=== PATIENT | male | born 1940 | race Caucasian/White ===

== ENCOUNTER 2018-02-26 12:40 | Outpatient (RCR) | payer MEDICARE, BC ==
[2018-02-05 13:47] VITALS: BP 91/57
[2018-02-05 13:49] VITALS: BP 112/53
[2018-02-12 12:39] VITALS: BP 126/78
[2018-02-12 13:26] VITALS: BP 89/51
[2018-02-19 12:44] VITALS: BP 124/74
[2018-02-19 13:15] VITALS: BP 126/76
[~2018-02-26] VITALS: Ht 162.6 cm; Wt 68.2 kg
[~2018-02-26 12:40] MED LIST: AMLODIPINE BESYL5 MG PO; ASPIRIN E.C. 8181 MG PO; CARVEDILOL25 MG PO; CLOPIDOGREL PO; FEOSOL325 MG PO; ISOSORBIDE MON120 MG PO; LISINOPRIL AND1 TA2 PO; NITROSTAT0.4 M1 SL; PROAIR HFA0.09 MG/AC IH
[2018-02-26 13:01] VITALS: BP 94/81
== END 2018-02-26 15:00 | disposition home or self-care (01) ==
LOC: AMSURD 12:40
DX: D50.9 Iron deficiency anemia, unspecified (principal)
CPT/HCPCS: J1200; J1756

== ENCOUNTER 2018-09-11 13:56 | Outpatient (RCR) | payer MEDICARE, BC ==
[2018-07-15 12:54] VITALS: BP 95/58
[2018-07-15 13:40] VITALS: BP 109/58
[2018-07-30 12:34] VITALS: BP 122/59
[2018-08-06 13:22] VITALS: BP 116/61
[2018-08-20 12:34] VITALS: BP 136/67
[2018-08-27 15:00] VITALS: BP 122/62
[2018-09-03 12:45] VITALS: BP 137/73
[2018-09-03 13:24] VITALS: BP 119/64
[~2018-09-11] VITALS: Ht 162.6 cm; Wt 68.2 kg
[2018-09-11 14:04] VITALS: BP 141/83
== END 2018-09-11 18:00 | disposition home or self-care (01) ==
LOC: AMSURD 13:56
DX: D50.0 Iron deficiency anemia secondary to blood loss (chronic) (principal)
CPT/HCPCS: J1200; J1756

== ENCOUNTER 2018-10-19 13:43 | Outpatient (RCR) | payer MEDICARE, BC ==
[2018-09-28 14:00] VITALS: BP 170/99
[2018-10-05 13:40] VITALS: BP 129/70
[2018-10-12 14:57] VITALS: BP 105/57
[2018-10-12 15:20] VITALS: BP 137/65
[~2018-10-19] VITALS: Ht 162.6 cm; Wt 68.2 kg
[2018-10-19 14:25] VITALS: BP 128/73
== END 2018-10-19 16:00 | disposition home or self-care (01) ==
LOC: AMSURD 13:43
DX: D50.9 Iron deficiency anemia, unspecified (principal); Z79.899 Other long term (current) drug therapy
CPT/HCPCS: J1200; J1756

== ENCOUNTER → 2018-11-11 | Outpatient (CLI) | payer MEDICARE, BC ==
[2018-10-19 14:25] VITALS: BP 128/73
[2018-11-11 11:33] LABS: ALBUMIN 3.1 g/dL (3.4-4.8); POTASSIUM 4.2 mmol/L (3.5-5.1); SODIUM 137 mmol/L (136-145)
[2018-11-11 11:34] LABS: CALCIUM 9.6 mg/dL (8.3-10.5)
[2018-11-11 11:35] LABS: GLUCOSE 175 mg/dL (75-110)
[2018-11-11 11:36] LABS: TOTAL PROTEIN 7.1 g/dL (6.2-8.1)
[2018-11-11 11:37] LABS: CARBON DIOXIDE 25 mmol/L (23-31); TOTAL BILIRUBIN 0.6 mg/dL (0.2-1.2)
[2018-11-11 11:41] LABS: AST-SGOT 21 U/L (5-34)
[2018-11-11 11:42] LABS: ALT/SGPT 29 U/L (0-55)
[2018-11-11 11:50] LABS: TROPONIN-I < 0.03 ng/mL (<0.030)
== END ==
LOC: LAB 11:11
PROVIDERS: Internal Medicine Cardiovascular Disease
DX: I20.8 Other forms of angina pectoris (principal); R06.09 Other forms of dyspnea